=== PATIENT | female | born 1930 | race Caucasian/White ===

== ENCOUNTER 2016-10-29 09:54 | Emergency (ER) | payer MEDICARE, OTHER ==
[~2016-10-29] VITALS: Ht 165.1 cm; Wt 70.0 kg
[~2016-10-29 09:54] MED LIST: ACET650T10 PO; ALPR0.5T10 PO; ASPI-496 PO; CIPR500T87 PO; DOCU100C24 PO; ESTR0.3T PO; ESTR42.53 VG; HYDR25TA6 PO; LEVO500T33 PO; LEVO750T26 PO; LOVA10TA PO; MEDR2.5T PO; MEGE20TA PO; METR500T PO; NITR100C56; OMEP-110 PO; ONDA4TAB7; OXYC5CAP4; POLY17PO5 PO; POTA20TA89 PO; POTA2TAB8 PO; PROM25TA10 PO; TRAM50TA2 PO
[2016-10-29 10:51] LABS: PATH.CAST-FLAG NOT PRESENT; SPERM-FLAG NOT PRESENT; SRC-FLAG NOT PRESENT; XTAL-FLAG NOT PRESENT; YLC-FLAG NOT PRESENT
[2016-10-29] MEDS ORDERED: ONDANSETRON 2MG/ML, 2ML IVPush ONE (11:30)
[2016-10-29] MEDS ORDERED: MORPHINE SULFATE 4 MG/ML, 1ML IVPush PRN (11:30)
[2016-10-29] MEDS ORDERED: SODIUM CHLORIDE 0.9% 1,000ML IVBOLUS ONE (11:30)
[2016-10-29] MEDS ORDERED: SODIUM CHLORIDE FLUSH 10ML SYR IVF ONE (11:30)
[2016-10-29] MEDS ORDERED: ONDANSETRON 2MG/ML, 2ML ONE (11:33)
[2016-10-29] MEDS ORDERED: MORPHINE SULFATE 4 MG/ML, 1ML ONE (11:33)
[2016-10-29 11:55] VITALS: BP 144/70
[2016-10-29 13:04] LABS: HEMOGLOBIN 11.7 g/dL (11.7-16.4)
[2016-10-29 13:15] LABS: BLOOD UREA NITROGEN 15 mg/dL (7-18)
[2016-10-29 13:18] LABS: ASPARTATE AMINO TRANSFERASE 20 U/L (15-37)
== END 2016-10-29 13:49 | disposition home or self-care (01) ==
LOC: ED 10:18
DX: N10 Acute pyelonephritis (principal); I10 Essential (primary) hypertension; E78.5 Hyperlipidemia, unspecified; E78.00 Pure hypercholesterolemia, unspecified; K21.9 Gastro-esophageal reflux disease without esophagitis; M54.9 Dorsalgia, unspecified; G89.29 Other chronic pain; Z88.1 Allergy status to other antibiotic agents
CPT/HCPCS: 36415; 71010; 74176; 80053; 81001; 83605; 83690; 85025; 87086; 96361; 96374; 96375; 99285; J2405; J7030

== ENCOUNTER 2018-11-14 06:55 | Emergency (ER) | payer OTHER ==
[~2018-11-14] VITALS: Ht 162.6 cm; Wt 73.0 kg
[~2018-11-14 06:55] MED LIST changes: +DOCU-193 PO; -DOCU100C24 PO; -LEVO500T33 PO; +LEVO500T47 PO; +OXYC5CAP2; -OXYC5CAP4
--- NOTE | 2018-11-14 07:10 | NUR ---
PT TO ROOM AT THIS TIME
[2018-11-14] MEDS ORDERED: ONDANSETRON 2MG/ML, 2ML IVPush ONE (07:30)
[2018-11-14] MEDS ORDERED: SODIUM CHLORIDE FLUSH 10ML SYR IVF ONE (07:30)
[2018-11-14] MEDS ORDERED: ONDANSETRON 2MG/ML, 2ML ONE (07:33)
[2018-11-14] MEDS ORDERED: MORPHINE SULFATE 4 MG/ML, 1ML ONE ×2 (07:33→09:42)
--- NOTE | 2018-11-14 07:35 | NUR ---
LATE ENTRY FOR 0725; PT C/O BACK PAIN. PT HAD GLF ABOUT 3 WEEKS AGO. BACK PAIN HAS INCREASED OVER THE LAST 3 DAYS. BEDSIDE. PT PLACED ON CONT PULSE OX,NIBP. PT HAS HX OF MULTIPLE BACK SURGERIES. PT FOLLOWS UP WITH PAIN MANAGEMENT MD.
--- NOTE | 2018-11-14 07:35 | NUR ---
THIS RN IN TO ADMINISTER MEDICATIONS AND START PIV. PT TAKEN TO IMAGING.
--- NOTE | 2018-11-14 07:51 | NUR ---
PT BACK FROM IMAGING
[2018-11-14] MEDS: MORPHINE SULFATE 4 MG/ML, 1ML IVPush PRN ×2 (08:00→09:45)
--- NOTE | 2018-11-14 08:03 | NUR ---
PIV ESTABLISHED. PT TOLERATED WITH NO COMPLICATIONS. BLOOD DRAWN. MEDICATIONS ADMINISTERED PER EMAR. NO NEEDS REQUESTED AT THS TIME. BEDSIDE.
[2018-11-14 08:19] LABS: BASOPHILS # (AUTO) 0.02 x10^3/uL (0-0.1); BASOPHILS % (AUTO) 0 % (0-1); EOSINOPHILS # (AUTO) 0.11 x10^3/uL (0-0.4); EOSINOPHILS % (AUTO) 2 % (1-7); LYMPHOCYTES # (AUTO) 1.29 x10^3/uL (1-3.4); LYMPHOCYTES % (AUTO) 25 % (22-44); MD NO; MEAN CORPUSCULAR HEMOGLOBIN 31.2 pg (27.0-34.8); MEAN CORPUSCULAR HGB CONC 33.8 g/dL (32.4-35.8); MEAN CORPUSCULAR VOLUME 92.2 fL (80-100); MEAN PLATELET VOLUME 8.6 fL (7.4-10.4); MONOCYTES # (AUTO) 0.58 x10^3/uL (0.2-0.8); MONOCYTES % (AUTO) 11 % (2-9); NEUTROPHILS # (AUTO) 3.09 x10^3/uL (1.8-6.8); NEUTROPHILS % (AUTO) 61 % (42-75); PLATELET COUNT 184 x10^3/uL (130-400); RED BLOOD COUNT 4.07 x10^6/uL (3.82-5.3); RED CELL DISTRIBUTION WIDTH 13.7 % (9.6-15.2)
[2018-11-14 08:21] LABS: ALBUMIN 3.8 g/dL (3.4-5.0); ANION GAP 4 mmol/L (5-15); CALCIUM 9.1 mg/dL (8.5-10.1); CHLORIDE 101 mmol/L (98-107); CREATININE 0.94 mg/dL (0.55-1.02)
--- NOTE | 2018-11-14 08:27 | NUR ---
STRAIGHT CATH PERFORMED. PT TOLERATED WITH NO COMPLICATIONS. UA SENT TO LAB. BEDSIDE. NO NEEDS REQUESTED AT THIS TIME.
[2018-11-14 08:57] LABS: MICROSCOPIC INDICATED
--- NOTE | 2018-11-14 09:03 | NUR ---
REPORT TO RACHAEL MATUTE.
--- NOTE | 2018-11-14 09:08 | NUR ---
ASSUMED CARE. PT RETURNED FROM CT. PT STATES SOME IMPROVEMENT IN BACK PAIN SINCE MEDICATED FOR SAME BUT WITH SLIGHT MOVEMENT SHE EXPERIENCES PAIN LEFT HIP/LOW BACK PAIN.
[2018-11-14 09:16] LABS: CULTURE INDICATED? YES
--- NOTE | 2018-11-14 09:48 | NUR ---
MEDICATED FOR PAIN PER ORDERS, 01/02
[2018-11-14 10:34] VITALS: BP 138/74
[2018-11-15] MEDS ORDERED: NITR50CA PO (04:02)
== END 2018-11-14 10:37 | disposition home or self-care (01) ==
LOC: ED 09:19
DX: S39.012A Strain of muscle, fascia and tendon of lower back, initial encounter (principal); E78.5 Hyperlipidemia, unspecified; E78.00 Pure hypercholesterolemia, unspecified; K21.9 Gastro-esophageal reflux disease without esophagitis; I10 Essential (primary) hypertension; W01.0XXA Fall on same level from slipping, tripping and stumbling without subsequent striking against object, initial encounter; Y93.89 Activity, other specified; Y92.89 Other specified places as the place of occurrence of the external cause; Y99.8 Other external cause status
CPT/HCPCS: 36415; 72100; 72192; 73502; 80048; 81001; 82040; 85025; 87086; 96374; 96375; 96376; 99284; J2405

== ENCOUNTER 2018-11-29 07:55 | Emergency (ER) | payer MEDICARE, OTHER ==
[~2018-11-29] VITALS: Ht 162.6 cm; Wt 74.0 kg
[~2018-11-29 07:55] MED LIST changes: +NITR50CA PO; +OXYC1TAB7 PO
[2018-11-29] MEDS ORDERED: AMOX1TAB12 PO (08:11)
[2018-11-29] MEDS ORDERED: HYDR25TA6 PO (08:11)
[2018-11-29] MEDS ORDERED: TRAM50TA2 PO (08:11)
[2018-11-29] MEDS ORDERED: ONDANSETRON 2MG/ML, 2ML IVPush ONE (08:30)
[2018-11-29] MEDS ORDERED: SODIUM CHLORIDE FLUSH 10ML SYR IVF ONE (08:30)
[2018-11-29] MEDS ORDERED: morphine SULFATE 10 MG/ML, 1ML IVPush ONE (08:30)
--- NOTE | 2018-11-29 08:33 | NUR ---
ULTRASOUND DELAY-IV FLUIDS.
[2018-11-29] MEDS ORDERED: MORPHINE SULFATE 4 MG/ML, 1ML ONE (08:41)
[2018-11-29] MEDS ORDERED: ONDANSETRON 2MG/ML, 2ML ONE (08:41)
[2018-11-29 08:51] LABS: ANION GAP 8 mmol/L (5-15); CALCIUM 9.4 mg/dL (8.5-10.1); CHLORIDE 89 mmol/L (98-107)
[2018-11-29 08:55] LABS: ALANINE AMINOTRANSFERASE 26 U/L (12-78); ALKALINE PHOSPHATASE 104 U/L (45-117); BILIRUBIN,TOTAL 0.6 mg/dL (0.2-1.0); CREATININE 0.99 mg/dL (0.55-1.02); TOTAL PROTEIN 7.9 g/dL (6.4-8.2)
--- NOTE | 2018-11-29 08:57 | NUR ---
report given to Kanika CANO
[2018-11-29 08:58] LABS: MICROSCOPIC AUTO
[2018-11-29 09:01] LABS: BASOPHILS # (AUTO) 0.02 x10^3/uL (0-0.1); BASOPHILS % (AUTO) 0 % (0-1); EOSINOPHILS # (AUTO) 0.07 x10^3/uL (0-0.4); EOSINOPHILS % (AUTO) 1 % (1-7); LYMPHOCYTES # (AUTO) 1.51 x10^3/uL (1-3.4); LYMPHOCYTES % (AUTO) 25 % (22-44); MD NO; MEAN CORPUSCULAR HEMOGLOBIN 31.1 pg (27.0-34.8); MEAN CORPUSCULAR HGB CONC 33.3 g/dL (32.4-35.8); MEAN CORPUSCULAR VOLUME 93.5 fL (80-100); MEAN PLATELET VOLUME 8.8 fL (7.4-10.4); MONOCYTES # (AUTO) 0.64 x10^3/uL (0.2-0.8); MONOCYTES % (AUTO) 11 % (2-9); NEUTROPHILS # (AUTO) 3.74 x10^3/uL (1.8-6.8); NEUTROPHILS % (AUTO) 63 % (42-75); PLATELET COUNT 255 x10^3/uL (130-400); RED BLOOD COUNT 4.21 x10^6/uL (3.82-5.3); RED CELL DISTRIBUTION WIDTH 14.1 % (9.6-15.2)
[2018-11-29 09:10] LABS: CULTURE INDICATED? YES
--- NOTE | 2018-11-29 09:23 | NUR ---
ASSUMED CARE. PT STATES RLQ PAIN IMPROVED SINCE MEDICATED, 01/02. AT BEDSIDE. AWAITING ULTRASOUND REPORT
[2018-11-29] MEDS ORDERED: SODIUM CHLORIDE 0.9% 1,000ML IVBOLUS ONE (09:30)
--- NOTE | 2018-11-29 10:08 | NUR ---
TO CT VIA [facility]
[2018-11-29] MEDS ORDERED: OMNIPAQUE 350 MG/ML, 100ML BOTTLE ONE (10:14)
--- NOTE | 2018-11-29 10:40 | NUR ---
PT AMBULATED ACROSS [place] WITH ASSISANCE OF CANE AND AT SIDE TO USE BATHROOM
--- NOTE | 2018-11-29 11:00 | NUR ---
MD SPEAKING WITH PT AND ABOUT RESULTS OF STUDY AND INTENT TO DISCHARGE HOME
--- NOTE | 2018-11-29 11:30 | NUR ---
RN NIKKI IS ASSISTING THE PRIMARY CARE RN WITH THE PT.'S DISCHARGE. PT.'S IV WAS DCD',CATH TIP INTACT. PRESSURE HELD WITH HEMOSTASIS ACHIEVED. PT. WAS GIVEN DISCHARGE INSTRUCTIONS AND A SCRIPT FOR PERCOCET. PT. AND HER SPOUSE VERBALIZED UNDERSTANDING ALONG WITH WILLINGNESS TO COMPLY. PT. WAS ASSISTED TO THE RESTROOM AND THEN TO DISCHARGE.
[2018-11-29 11:36] VITALS: BP 165/60
== END 2018-11-29 11:39 | disposition home or self-care (01) ==
LOC: ED 09:14
DX: M54.40 Lumbago with sciatica, unspecified side (principal); E87.1 Hypo-osmolality and hyponatremia; R62.7 Adult failure to thrive; M46.1 Sacroiliitis, not elsewhere classified; R10.31 Right lower quadrant pain; G89.29 Other chronic pain; E78.5 Hyperlipidemia, unspecified; K21.9 Gastro-esophageal reflux disease without esophagitis; E78.00 Pure hypercholesterolemia, unspecified; I10 Essential (primary) hypertension; Z90.89 Acquired absence of other organs; Z88.1 Allergy status to other antibiotic agents; Z88.6 Allergy status to analgesic agent
CPT/HCPCS: 36415; 74177; 76770; 80053; 81001; 83690; 85025; 87086; 96361; 96374; 96375; 99284; J2270; J2405; J7030; Q9967

== ENCOUNTER 2018-12-01 10:05 | Inpatient (IN) | payer MEDICARE, OTHER ==
[~2018-12-01] VITALS: Ht 162.6 cm; Wt 77.4 kg
[~2018-12-01 10:05] MED LIST changes: +AMOX1TAB12 PO
--- NOTE | 2018-12-01 10:26 | NUR ---
PATIENT BIB [facility] FOR RLQ PAIN/R FLANK PAIN RADIATING TO RT LEG X 2 MONTHS, DENIES N/V/D. PATIENT SEEN AND MEDICALLY CLEARED 2 DAYS AGO AT [facility] FOR SAME. PATIENT DIAGNOSED WITH UTI PRIOR TO BEING SEEN AT [facility] BY MD (DR LAZARO) AND GIVEN AMOXICILLIN. NEGATIVE FOR UTI AT [facility] PER [facility]. PATIENT REPORTS INCREASE IN ABD PAIN WITH NO RELIEF BY PERC. 2 MG MORPHINE AND ZOFRAN GIVEN EN ROUTE. SPOUSE AT BEDSIDE, AWAITING MD ORDERS. CALL LIGHT WITHIN REACH. WARM BLANKET PROVIDED.
[2018-12-01] MEDS ORDERED: OXYC-307 PO (10:29)
--- NOTE | 2018-12-01 10:43 | NUR ---
NEW ORDER, AWAITING MRI.
[2018-12-01] MEDS ORDERED: ONDANSETRON 2MG/ML, 2ML IVPush ONE (11:00)
[2018-12-01] MEDS ORDERED: HYDROmorphone 2 MG/ML, 1ML IVPush PRN (11:00)
--- NOTE | 2018-12-01 11:03 | NUR ---
PATIENT AMBULATED WITH STEADY SLOW GAIT WITH WALKER WITH 1 ASSIST TO BATHROOM, PATIENT BACK TO BED, VS UPDATED IN CHART. AWAITING MRI.
[2018-12-01] MEDS ORDERED: HYDROmorphone 1 MG/ML, 1ML VIAL ONE (11:05)
[2018-12-01] MEDS ORDERED: ONDANSETRON 2MG/ML, 2ML ONE (11:05)
--- NOTE | 2018-12-01 11:11 | NUR ---
PATIENT REPORTS 10/10 ABD PAIN, PAIN MEDICATION ADMINISTERED PER MD ORDER.
[2018-12-01] MEDS ORDERED: LORazepam 2 MG/ML, 1ML ONE (11:38)
--- NOTE | 2018-12-01 11:41 | NUR ---
PATIENT MEDICATED WITH ATIVAN FOR ANXIETY PRIOR TO MRI, PATIENT TO MRI VIA GURNEY AT THIS TIME. NAD NOTED [phone].
[2018-12-01] MEDS ORDERED: LORazepam 2 MG/ML, 1ML IVPush PRN (12:00)
--- NOTE | 2018-12-01 12:28 | NUR ---
REPORT TO RACHAEL ADAME. PATIENT WILL TRANSFER AFTER MRI.
[2018-12-01] MEDS ORDERED: SODIUM CHLORIDE FLUSH 10ML SYR IVF PRN (12:30)
[2018-12-01] MEDS ORDERED: HYDROmorphone 1 MG/ML, 1ML INJ IVPush PRN (12:30)
[2018-12-01] MEDS ORDERED: ONDANSETRON 2MG/ML, 2ML IVPush PRN ×2 (12:30→14:30)
--- NOTE | 2018-12-01 13:03 | NUR ---
PATIENT BACK FROM MRI, TRANSPORT NOTIFIED. PATIENT READY FOR TRANSPORT.
--- NOTE | 2018-12-01 13:10 | NUR ---
PATIENT TRANSFERRED/ADMITTED UPSTAIRS AT THIS TIME.
[2018-12-01 13:23] VITALS: BP 150/76
[2018-12-01 14:12] VITALS: BP 150/76
[2018-12-01] MEDS ORDERED: hydrALAzine 20 MG/ML, 1ML IVPush PRN (14:30)
[2018-12-01] MEDS ORDERED: METHOCARBAMOL 500 MG TABLET PO PRN (14:30)
[2018-12-01] MEDS ORDERED: LIDODERM 5% PATCH TD PRN (14:30)
[2018-12-01] MEDS ORDERED: GABAPENTIN 100 MG CAPSULE PO PRN (14:30)
[2018-12-01] MEDS ORDERED: ONDANSETRON ODT 4 MG PO PRN (14:30)
[2018-12-01] MEDS: OXYcodone/APAP 10/325MG TABLET PO PRN ×2 (16:11→21:49)
[2018-12-01 17:25] LABS: ANION GAP 5 mmol/L (5-15); CALCIUM 9.2 mg/dL (8.5-10.1); CHLORIDE 98 mmol/L (98-107); CREATININE 0.97 mg/dL (0.55-1.02)
[2018-12-01] MEDS: HYDROmorphone 2 MG/ML, 1ML IVPush PRN ×2 (18:23→23:58)
[2018-12-01 19:53] VITALS: BP 137/70
[2018-12-01] MEDS: OMEPRAZOLE 20 MG CAPSULE.DR PO SCH (21:49)
[2018-12-01] MEDS: ACETAMINOPHEN 325 MG TABLET PO SCH (21:49)
[2018-12-02 00:12] VITALS: BP 122/71
[2018-12-02] MEDS: HYDROmorphone 2 MG/ML, 1ML IVPush PRN ×2 (03:04→06:35)
[2018-12-02 07:19] VITALS: BP 115/66
[2018-12-02] MEDS: OMEPRAZOLE 20 MG CAPSULE.DR PO SCH ×2 (09:10→21:55)
[2018-12-02] MEDS: POLYETHYLENE GLYCOL 17 GM PACKET PO SCH (09:10)
[2018-12-02] MEDS: SENNA/DOCUSATE TABLET PO SCH (09:10)
[2018-12-02] MEDS: HYDROCHLOROTHIAZIDE 25 MG TABLET PO SCH (09:11)
[2018-12-02] MEDS: AMOXICILLIN/CLAV 875-125MG TABLET PO SCH (09:11)
[2018-12-02] MEDS: ACETAMINOPHEN 325 MG TABLET PO SCH ×2 (09:11→21:55)
[2018-12-02] MEDS ORDERED: POTASSIUM CHLORIDE 20 MEQ TAB.ER.PRT PO ONE (10:00)
[2018-12-02] MEDS: OXYcodone/APAP 10/325MG TABLET PO PRN ×3 (12:20→23:40)
[2018-12-02] MEDS ORDERED: BISACODYL 10 MG SUPP PR PRN (14:30)
[2018-12-02 14:50] LABS: BASOPHILS # (AUTO) 0.01 x10^3/uL (0-0.1); BASOPHILS % (AUTO) 0 % (0-1); EOSINOPHILS # (AUTO) 0.02 x10^3/uL (0-0.4); EOSINOPHILS % (AUTO) 0 % (1-7); LYMPHOCYTES % (AUTO) 22 % (22-44); MD NO; MEAN PLATELET VOLUME 8.5 fL (7.4-10.4); MONOCYTES # (AUTO) 0.57 x10^3/uL (0.2-0.8); MONOCYTES % (AUTO) 9 % (2-9); NEUTROPHILS # (AUTO) 4.24 x10^3/uL (1.8-6.8); NEUTROPHILS % (AUTO) 68 % (42-75); PLATELET COUNT 277 x10^3/uL (130-400); RED BLOOD COUNT 4.13 x10^6/uL (3.82-5.3); RED CELL DISTRIBUTION WIDTH 14.6 % (9.6-15.2)
[2018-12-02 14:56] LABS: ALANINE AMINOTRANSFERASE 21 U/L (12-78); ANION GAP 7 mmol/L (5-15); CALCIUM 9.3 mg/dL (8.5-10.1); CHLORIDE 92 mmol/L (98-107); CREATININE 1.11 mg/dL (0.55-1.02)
[2018-12-02 14:58] LABS: ALKALINE PHOSPHATASE 96 U/L (45-117); BILIRUBIN,TOTAL 0.4 mg/dL (0.2-1.0); TOTAL PROTEIN 7.5 g/dL (6.4-8.2)
[2018-12-02 15:29] VITALS: BP 119/71
[2018-12-02 19:17] VITALS: BP 167/69
[2018-12-03 03:29] VITALS: BP 103/67
[2018-12-03] MEDS: OXYcodone/APAP 10/325MG TABLET PO PRN ×3 (04:30→17:28)
[2018-12-03] MEDS: ACETAMINOPHEN 325 MG TABLET PO SCH ×2 (07:33→20:13)
[2018-12-03] MEDS: SENNA/DOCUSATE TABLET PO SCH ×2 (07:33→20:13)
[2018-12-03] MEDS: AMOXICILLIN/CLAV 875-125MG TABLET PO SCH (07:33)
[2018-12-03] MEDS: HYDROCHLOROTHIAZIDE 25 MG TABLET PO SCH (07:34)
[2018-12-03] MEDS: OMEPRAZOLE 20 MG CAPSULE.DR PO SCH ×2 (07:34→20:13)
[2018-12-03] MEDS: POLYETHYLENE GLYCOL 17 GM PACKET PO SCH (07:34)
[2018-12-03 08:00] VITALS: BP 121/70
[2018-12-03 13:39] LABS: ANION GAP 7 mmol/L (5-15); CALCIUM 8.8 mg/dL (8.5-10.1); CHLORIDE 93 mmol/L (98-107); CREATININE 0.98 mg/dL (0.55-1.02)
[2018-12-03 13:58] VITALS: BP 99/58
[2018-12-03 19:35] VITALS: BP 136/72
[2018-12-03] MEDS ORDERED: OxyconTIN ER 20 MG TAB.ER PO SCH (20:00)
[2018-12-03] MEDS ORDERED: OxyconTIN ER 10 MG TAB.ER ONE (20:09)
[2018-12-03] MEDS: OxyconTIN ER 10 MG TAB.ER PO SCH (20:21)
[2018-12-04 04:31] VITALS: BP 132/75
[2018-12-04 06:05] VITALS: BP 132/73
[2018-12-04] MEDS: ACETAMINOPHEN 325 MG TABLET PO SCH (07:50)
[2018-12-04] MEDS: POLYETHYLENE GLYCOL 17 GM PACKET PO SCH (07:50)
[2018-12-04] MEDS: AMOXICILLIN/CLAV 875-125MG TABLET PO SCH (07:51)
[2018-12-04] MEDS: OMEPRAZOLE 20 MG CAPSULE.DR PO SCH (07:51)
[2018-12-04] MEDS: HYDROCHLOROTHIAZIDE 25 MG TABLET PO SCH (07:51)
[2018-12-04] MEDS: OxyconTIN ER 10 MG TAB.ER PO SCH (07:51)
[2018-12-04] MEDS: SENNA/DOCUSATE TABLET PO SCH (07:51)
[2018-12-04] MEDS: OXYcodone/APAP 10/325MG TABLET PO PRN ×2 (10:26→15:13)
[2018-12-04 12:25] VITALS: BP 126/73
[2018-12-04] MEDS ORDERED: LIDO700A20 TD (14:14)
[2018-12-04] MEDS ORDERED: SENN-177 PO (14:14)
[2018-12-04] MEDS ORDERED: OXYC-307 PO ×2 (14:14→14:31)
[2018-12-04] MEDS ORDERED: OXYC20TA59 PO (14:14)
== END 2018-12-04 15:18 | disposition home or self-care (01) | DRG 552 ==
LOC: ED 12:00 → 3NE 12:01 → ED 12:47
PROVIDERS: ADMIT Internal Medicine; ATTEND Internal Medicine
DX: M47.26 Other spondylosis with radiculopathy, lumbar region (principal); N39.0 Urinary tract infection, site not specified; E87.1 Hypo-osmolality and hyponatremia; N13.6 Pyonephrosis; M48.061 Spinal stenosis, lumbar region without neurogenic claudication; E78.00 Pure hypercholesterolemia, unspecified; E78.5 Hyperlipidemia, unspecified; E87.6 Hypokalemia; F41.9 Anxiety disorder, unspecified; G89.29 Other chronic pain; I12.9 Hypertensive chronic kidney disease with stage 1 through stage 4 chronic kidney disease, or unspecified chronic kidney disease; N18.3 Chronic kidney disease, stage 3 (moderate); K21.9 Gastro-esophageal reflux disease without esophagitis; K59.09 Other constipation; K82.8 Other specified diseases of gallbladder; M41.9 Scoliosis, unspecified; M48.04 Spinal stenosis, thoracic region; M51.16 Intervertebral disc disorders with radiculopathy, lumbar region; M51.24 Other intervertebral disc displacement, thoracic region; M51.34 Other intervertebral disc degeneration, thoracic region; N28.1 Cyst of kidney, acquired; Z66 Do not resuscitate; Z87.01 Personal history of pneumonia (recurrent); Z98.1 Arthrodesis status
CPT/HCPCS: 36415; 72146; 80048; 80053; 85025; 96374; 96375; G0378; J1170; J2405; J2060

== ENCOUNTER → 2020-03-27 | Outpatient (CLI) | payer MEDICARE, OTHER ==
[~2020-03-27] MED LIST changes: +LIDO700A20 TD; -MEGE20TA PO; +MEGE20TA3 PO; +OXYC-307 PO; +OXYC20TA59 PO; +SENN-177 PO
== END | disposition home or self-care (01) ==
LOC: CFH 08:18
PROVIDERS: ATTEND Specialist
DX: M51.16 Intervertebral disc disorders with radiculopathy, lumbar region (principal); M41.86 Other forms of scoliosis, lumbar region; M48.061 Spinal stenosis, lumbar region without neurogenic claudication; M48.04 Spinal stenosis, thoracic region
CPT/HCPCS: 72148